=== PATIENT | male | born 1960 ===

== ENCOUNTER 2022-02-26 09:17 | Outpatient (CLI) | payer SELFPAY | END 2022-03-05 09:18 | disposition home or self-care (01) | LOC: WOUND 04-28 08:50 | PROVIDERS: Visit Provider Surgery | DX: I87.2 Venous insufficiency (chronic) (peripheral) (principal); L97.312 Non-pressure chronic ulcer of right ankle with fat layer exposed; Z86.718 Personal history of other venous thrombosis and embolism; Z79.01 Long term (current) use of anticoagulants | CPT/HCPCS: 11042 ==